=== PATIENT | male | born 1990 | race African-American/Black ===

== ENCOUNTER 2018-03-25 08:19 | Emergency (ER) | payer MEDICAID ==
[~2018-03-25] VITALS: Ht 177.8 cm; Wt 88.6 kg
[2018-03-25 08:32] VITALS: Ht 177.8 cm; Wt 88.6 kg
[2018-03-25] MEDS ORDERED: MACROBID100 MG (08:33)
[2018-03-25 09:42] LABS: ALBUMIN 3.2 g/dL (3.4-5.0); ANION GAP 11.5 mmol/L (8-16); BILIRUBIN - TOTAL 1.42 mg/dL (0.2-1.3); CALCIUM 8.3 mg/dL (8.5-10.1); CARBON DIOXIDE 28.9 mmol/L (21.0-32.0); CREATININE - SERUM 1.4 mg/dL (0.6-1.3); POTASSIUM - SERUM 4.4 mmol/L (3.5-5.1); PROTEIN - SERUM 6.8 g/dL (6.4-8.2)
[2018-03-25 10:13] LABS: BASOPHILS 0.1 % (0-2); EOSINOPHILS 0 % (0-7); HEMATOCRIT 48.9 % (42.0-54.0); HEMOGLOBIN 16.9 g/dL (13.5-17.5); IMMATURE GRANULOCYTES 0.2 % (0-5); LYMPHOCYTES 8.9 % (15-50); MCH 31.6 pg (26.0-34.0); MCHC 34.6 g/dL (31.0-37.0); MCV 91.6 fL (80.0-100.0); MEAN PLATELET VOLUME 11.5 fL (7.4-10.4); MONOCYTES 4.1 % (2-11); NEUTROPHILS 86.7 % (40-80); PLATELET COUNT 166 10x3/uL (130-400); RBC 5.34 10x6/uL (4.20-6.10); RDW 12.5 % (11.5-14.5); WBC 10.5 10x3/uL (4.8-10.8)
[2018-03-25 11:08] LABS: APPEARANCE HAZY (CLEAR); BILIRUBIN NEGATIVE (NEGATIVE); COLOR YELLOW (YELLOW); GLUCOSE NEGATIVE (NEGATIVE); KETONE LARGE mg/dL (NEGATIVE); NITRITE NEGATIVE (NEGATIVE); PROTEIN NEGATIVE (NEGATIVE)
[2018-03-25 11:09] LABS: BACTERIA FEW /hpf (NONE SEEN); EPITHELIAL CELLS 0-5 /hpf (0-5); MUCUS <1+ /lpf (NONE SEEN); RED CELLS - URINE 0-5 /hpf (0-5)
[2018-03-25 11:34] VITALS: BP 136/84
[2018-03-27 19:10] LABS: CHLAMYDIA TRACHOMATIS, NAA Negative (Negative)
== END 2018-03-25 11:34 | disposition home or self-care (01) ==
LOC: D.ER 08:19
PROVIDERS: Family Medicine
DX: N39.0 Urinary tract infection, site not specified (principal); R51 Headache; M79.18 Myalgia, other site